=== PATIENT | male | born 1940 | race Caucasian/White ===

== ENCOUNTER 2019-12-15 17:17 | Observation (INO) ==
[2019-12-15] MEDS ORDERED: Naloxone 0.4 MG/ML INJ IVP PRN ×2 (20:40→21:46)
[2019-12-15] MEDS ORDERED: *HR* Promethazine 25 MG/ML VIAL IVP PRN (21:46)
[2019-12-15 22:14] LABS: Albumin/Globulin Ratio 0.8 (1.1-2.2); Bilirubin,Direct 2.5 mg/dL (0.0-0.2); Bilirubin,Indirect 1.2 mg/dL (0.0-1.0); Bilirubin,Total 3.7 mg/dL (0.3-1.0); Calcium 9.1 mg/dL (8.6-10.3); Globulin 3.9 g/dL (2.4-3.5); Magnesium 2.3 mg/dL (1.6-2.6); Phosphorous 3.6 mg/dL (2.7-4.5); Potassium 3.4 mEq/L (3.5-5.1); Total Protein 6.9 g/dL (6.4-8.9)
[2019-12-15] MEDS: *HR* Heparin 5,000 UNIT/ML VIAL SQ SCH (22:43)
[2019-12-15] MEDS: *HR* HYDROcodone/Acet 5/325 mg TABLET PO PRN (22:43)
[2019-12-15] MEDS: 0.9 % Sodium Chloride 1,000 ML IVC SCH (22:44)
[2019-12-16] MEDS ORDERED: *HR* HYDROcodone/Acet 5/325 mg TABLET PO SCH
[2019-12-16 03:54] LABS: INR 1.1; Prothrombin Time 12.4 Seconds (9.4-12.1)
[2019-12-16 03:56] LABS: Activated Partial Thrombo Time 36.4 Seconds (26.0-36.0)
[2019-12-16 04:00] LABS: Basophils % 0.3 %; Hematocrit 30.7 % (37.5-50.1); Hemoglobin 9.2 g/dL (12.9-16.9); Immature Granulocytes % 0.7 % (0-4); Lymphocytes % 6.5 %; Mean Corpuscular Hemoglobin 24.5 pg (28.0-33.3); Mean Corpuscular Volume 81.9 fL (83.0-100.0); Mean Platelet Volume 9.5 fL (9.4-12.4); Monocytes # 1.5 K/mcL (0.0-1.3); Monocytes % 10.2 %; Neutrophils # 12.4 K/mcL (1.6-8.9); Platelet Count 495 K/mcL (140-400); Red Blood Count 3.75 M/mcL (4.19-5.50); Red Cell Distribution Width 25.1 % (11.5-14.5); Segmented Neutrophils % 82.3 %
[2019-12-16 04:32] LABS: Basophils # 0.1 K/mcL (0.0-0.2)
[2019-12-16] MEDS: *HR* Heparin 5,000 UNIT/ML VIAL SQ SCH ×3 (05:27→21:45)
[2019-12-16 05:56] LABS: Anisocytosis 1+ (Not Present); Hypochromasia Present (Not Present); Macrocytosis Present (Not Present)
[2019-12-16 05:57] LABS: Ovalocytes 1+ (Not Present); Platelet Estimate Increased (Normal)
[2019-12-16] MEDS ORDERED: polyethylene glycoL 3350 17 GM POWD.PACK PO PRN (09:06)
[2019-12-16] MEDS: 0.9 % Sodium Chloride 1,000 ML IVC SCH (09:44)
[2019-12-16] MEDS: *HR* HYDROcodone/Acet 5/325 mg TABLET PO PRN (09:45)
[2019-12-16] MEDS: Aspirin 81 MG TAB.CHEW PO SCH (09:45)
[2019-12-16] MEDS: Ondansetron 4 MG/2 ML VIAL IVP PRN (09:45)
[2019-12-16] MEDS: Sennosides 8.6 MG TABLET PO SCH (09:46)
[2019-12-16] MEDS: cefTRIAXone 1,000 MG in Water for inj. (sterile) 10 ML IVP SCH (09:46)
[2019-12-16] MEDS ORDERED: Melatonin 3 MG TABLET PO PRN (21:25)
[2019-12-17] MEDS: *HR* Heparin 5,000 UNIT/ML VIAL SQ SCH ×2 (05:06→11:21)
[2019-12-17] MEDS: Sennosides 8.6 MG TABLET PO SCH (08:55)
[2019-12-17] MEDS: Aspirin 81 MG TAB.CHEW PO SCH (08:56)
[2019-12-17] MEDS: cefTRIAXone 1,000 MG in Water for inj. (sterile) 10 ML IVP SCH (08:56)
[2019-12-17] MEDS ORDERED: *HR* OxyCODONE Immed Rel 5 MG TABLET PO PRN (09:32)
[2019-12-17 10:56] VITALS: BP 130/69
[2019-12-17] MEDS: Ondansetron 4 MG/2 ML VIAL IVP PRN (13:04)
[2019-12-17] MEDS ORDERED: GI Cocktail 40 ML EACH PO ONE (13:49)
== END 2019-12-17 16:03 | disposition hospice, home (50) ==
LOC: 2ANU → SUATTDRO 19:38
PROVIDERS: ADMIT Family Medicine; ATTEND Internal Medicine